=== PATIENT | female | born 1985 | race Caucasian/White ===

== ENCOUNTER 2022-03-09 10:55 | Inpatient (IN) | payer OTHER, MEDICAID, SELFPAY ==
[2022-03-09] VITALS (14 sets, daily range): BP systolic 105–123; BP diastolic 59–75; PULSE 75–99; TEMP 36.3–37.3; O2SAT 97–99; BMI 35.0
--- NOTE | 2022-03-09 15:31 | PCM.HP.OB ---
HPI - General General Date of Admission: 03/09/22 HPI Narrative JAMIA MANNING, is a 37 F @ 39.5 weeks who presents for IOL due to Polyhydramnios, AMA, Obesity in Maternal Data Information Final AARTI: 03/10/22 Final AARTI Source: US <20 weeks Gestational age: 39.5 PFSH PFS Medical History (Updated 03/09/22 @ 15:[address] Mckayla Jovel MD) Anxiety Depression depression Home Medications aspirin [Baby Aspirin] 81 mg PO DAILY 03/09/22 [History Last Taken 03/08/22 09:00] vit-iron fum-folic ac [Prena-Tab] 1 tab PO DAILY 03/09/22 [History Last Taken 03/09/22 08:00] Allergy/AdvReac Type Severity Reaction Status Date / Time No Known Allergies Allergy Verified 03/09/22 11:16 Family History (Updated 03/09/22 @ 13:28 by Sherry Farrar) Mother Bipolar 1 disorder Hypertension Sister Hypertension Father COPD (chronic obstructive pulmonary disease) Surgical History (Updated 03/09/22 @ 13:26 by Sherry Farrar) S/P D&C (status post dilation and curettage) NST FHR Rate Baby A Baseline: 140 Variability:: Moderate Accelerations:: 15 x 15 Decelerations:: None NST Reactive:: Yes FHR Category:: Category I Uterine Activity:: irregular Vital Signs Vital Signs Vital Signs: 03/09/22 11:10 03/09/22 11:11 Temperature 97.5 F L Temperature Source Temporal Pulse Rate 96 96 Blood Pressure 108/67 108/67 BP Systolic 108 108 BP Diastolic 67 67 Pulse Ox 98 Weight Weight: 76.113 kg Body Mass Index (BMI) 35.0 Labs Labs Labs: No Data to Display Assessment & Plan (1) Polyhydramnios: QUALIFIERS: Fetus number: single or unspecified fetus Trimester: third trimester Qualified Code(s): O40.3XX0 - Polyhydramnios, third trimester, not applicable or unspecified (2) 39 weeks gestation of : (3) AMA (advanced maternal age) multigravida 35+: QUALIFIERS: Trimester: third trimester Qualified Code(s): O09.523 - Supervision of elderly multigravida, third trimester (4) Obesity affecting : QUALIFIERS: Trimester: third trimester Qualified Code(s): O99.213 - Obesity complicating , third trimester PLAN: Admit to L&D Montior FHR/TOCO Epidural if requested for pain Monitor VS Anticipate pitocin gbs negative
[2022-03-09 16:15] LABS: Absolute Lymphocyte Count 1.44 X10^3/uL (0.83-4.51); Absolute Neutrophil Count 6.7 X10^3/uL (2.0-7.7); Basophil# 0.04 X10^3/uL; Basophil% 0.4 % (0-1); Eosinophil# 0.04 X10^3/uL; Eosinophils% 0.4 % (0-5); Hematocrit 32.3 % (37-47); Hemoglobin 10.4 g/dL (12.0-15.0); Lymphocyte # 1.44 X10^3/ul (0.83-4.51); Lymphocyte % 16.2 % (19-41); Mean Corp Hgb Conc 32.2 g/dL (32-36); Mean Corpuscular Hgb 29.9 pg (27.0-32.0); Mean Corpuscular Volume 92.8 fL (81-99); Mean Platelet Vol. 10.5 fl (6.2-12.0); Monocyte# 0.64 X10^3/uL; Monocyte% 7.2 % (0-10); NRBC Flagged by Analyzer 0 % (0-5); Neutrophil # 6.67 X10^3/uL (2.7-7.7); Neutrophil % 75.1 % (47-70); Platelet Count 315 K/mm3 (150-450); RBC Distribution Width CV 13.9 % (11.6-14.6); RBC Distribution Width SD 46.8 fl (35.1-43.9); Red Blood Count 3.48 M/mm3 (4.2-5.4); White Blood Count 8.9 K/mm3 (4.4-11.0)
--- NOTE | 2022-03-09 16:39 | PCM.PN.BLA ---
Progress Note Transcervical pearl placed. VE: /-3, vertex on exam. Will allow patient to eat and start pitocin 1 hr after eating.
[2022-03-09] MEDS: 0.9% Normal Saline Single 100 ML IV.SOLN. INTRA-UTER (16:46)
[2022-03-09] MEDS: Lactated Ringers 1,000 ML 50 ML IV (16:46)
[2022-03-09] MEDS: Oxytocin 30 units/NS 500 ml 30 UNITS/500 ML IV.SOLN IV (18:35)
[2022-03-10] VITALS (57 sets, daily range): BP systolic 89–138; BP diastolic 50–79; PULSE 44–196; RESP 16–18; TEMP 36.3–36.8; O2SAT 90–100
[2022-03-10] MEDS: Ondansetron 4 MG/2 ML Vial IV (01:49)
[2022-03-10] MEDS: Lactated Ringers 1,000 ML 200 ML IV ×2 (01:51→05:21)
[2022-03-10] MEDS: fentaNYL-bupivacaine (epidural) 100 ML BAG EPIDURAL (02:52)
[2022-03-10] MEDS: Mag Hydrox/Al Hydrox/Simeth 30 ML UDC PO (03:20)
--- NOTE | 2022-03-10 06:33 | PCM.PN.BLA ---
Progress Note seen at bedside, in hands and knees position. Feeling pressure. Vaginal exam performed 8.5cm/90/0 .
[2022-03-10] MEDS: Oxytocin 30 units/NS 500 ml 30 UNITS/500 ML IV.SOLN 334 UNITS IV (07:30)
--- NOTE | 2022-03-10 07:36 | EX.PCM.OBRPT ---
Assessment & Plan (1) Vaginal delivery: Maternal Data Information Final AARTI Source: US <20 weeks Gestational age: 39.6 Vaginal Delivery Maternal Presentation Maternal Presentation: Medically Indicated Induction Maternal Presentation: polyhydramnios, AMA, Obesity in , 39 weeks gestation Type of Induction: Pitocin and Chávez Bulb Operative Information Date of Procedure: 03/10/22 Pre-Operative Diagnosis: term gestation, ama, polyhydramnios, Post-Operative Diagnosis: same live male infant Surgery / Procedure Performed: Spontaneous Vaginal Delivery Type of Anesthesia: Epidural Estimated Blood Loss: 250 Time of Delivery: 07:19 Findings Description of Procedure: Progressed to fully dilated. Good maternal pushing efforts delivered the head with gentle downward traction anterior shoulder was delivered without complication. Patient did immediate skin to skin with the infant. Infant was vigorous at time of delivery. Delayed cord clamping was performed. I had to step out of the room due to emergent delivery in another room. Placenta was delivered intact spontaneously. Senior Supply Chain Analyst Zoe plots in the room once placenta came out. Vaginal exam performed and no lacerations. Placenta was intact. Presentation: Vertex Amniotic Membrane Rupture Type: Spontaneous Amniotic Fluid Description: Clear Placental Delivery Description: Spontaneous Placenta Disposition: [facility] Cord Vessel Description: 3 Vessels Cord Entanglement: None A Gender: Male (1 minute): 8 (5 minute): 9 Delayed Cord Clamping: Yes Post Vaginal Delivery Medications Given After Delivery: IV Pitocin Episiotomy Description: None Laceration: None Complication Complications: None
[2022-03-10] MEDS: Senna/Docusate Sodium 1 Tablet PO (09:01)
[2022-03-10] MEDS: Benzocaine/Lanolin/Aloe Vera 1 SPRAY EACH TOPICAL (09:02)
[2022-03-10] MEDS: 0.9% Saline Lock 10 ML Syringe IV (10:16)
[2022-03-10] MEDS: Naproxen 500 MG Tablet PO ×2 (10:16→18:57)
--- NOTE | 2022-03-10 12:12 | CM.ED ---
SW Note SW was advised by TRISTON Ramos, that she was calling patient's ORDER ENTRY ADMINISTRATOR for patient to be prescribed Wellbutrin. Patient has history of Post Depression and previously had taken Wellbutrin and wants to go back on Wellbutrin. RN said that on PHQ2 patient answered yes to feeling down and she will administer the PHQ9 to patient. Patient just delivered today. Pamela SMITH
[2022-03-10] MEDS: Acetaminophen 500 MG Tablet 1000 MG PO ×2 (15:45→22:58)
[2022-03-11 05:00] VITALS: BP 105/53; PULSE 87; RESP 18; TEMP 36.2; O2SAT 98
[2022-03-11 05:35] VITALS: BP 105/53; PULSE 88; O2SAT 99
[2022-03-11 08:13] VITALS: BP 99/52; PULSE 96; RESP 18; TEMP 36.4; O2SAT 97
[2022-03-11 08:14] VITALS: BP 99/52; PULSE 71
--- NOTE | 2022-03-11 09:39 | PCM.PN.OB ---
Subjective Subjective Patient seen at bedside. Feeling good. Denies any pain. Ambulating and voiding without difficulty. independently. Desires discharge home today. Objective Data Objective Data Vital Signs: Vital Signs Temp Pulse Resp BP Pulse Ox 97.5 F L 71 18 99/52 L 97 03/11/22 08:13 03/11/22 08:14 03/11/22 08:13 03/11/22 08:14 03/11/22 08:13 Oxygen Delivery Method Room Air Weight: 167 lb 12.8 oz Body Mass Index (BMI) 35.0 Intake & Output: Intake and Output for Last 24 Hours 03/09/22 03/10/22 03/11/22 23:59 23:59 23:59 Intake Total 8.00 / 8.00 4010.55 / 4010.55 Output Total 550 / 550 Balance 8.00 / 8.00 3460.55 / 3460.55 Lab / Micro Data Result Diagrams: 03/09/22 15:50 Micro: Microbiology 03/09/22 16:25 Nasal Secretion SARS-CoV-2 Antigen (Rapid) - Final ROS Eyes Eyes: Denies blurry vision, change in vision or spots in vision ENT HEENT: Denies dizziness or headache(s) Cardiovascular Cardiovascular: Denies abdominal pain, chest pain or dyspnea Respiratory/Chest Respiratory/Chest: Denies cough, dyspnea, shortness of breath at rest or shortness of breath with exertion Gastrointestinal Gastrointestinal: Denies abdominal pain, diarrhea or vomiting Genitourinary Genitourinary: Denies change in urinary stream, difficulty urinating or dysuria Musculoskeletal Musculoskeletal: Reports none Integumentary Integumentary: Denies rash Neurologic Neurologic: Denies dizziness, headache(s), memory loss or weakness Physical Exam Const alert and no apparent distress General Appearance: cooperative and comfortable Exam Limitations: no limitations HEENT normocephalic Eyes General Eye: normal appearance of both eyes Neck full ROM General: normal visual inspection Chest Chest: symmetrical chest wall rise Resp normal respiratory effort and normal air movement Effort and Inspection: symmetric chest movement Auscultation: clear to auscultation bilaterally Cardio regular rate and regular rhythm GI normal to inspection, nondistended, normoactive bowel sounds Back/Spine normal ROM Extremity full ROM and no calf tenderness General Extremity: normal exam except as noted Skin no rashes or lesions noted Neuro CN's II-XII intact bilaterally Psych mental status grossly normal Assessment & Plan (1) Vaginal delivery: PLAN: PPD 1 Routine care support D/C home with follow up in office
--- NOTE | 2022-03-11 09:40 | NURSING ---
Plan of care discussed at nurses station with social media executive and Alexs CNLinda. Pt concerned with taking wellbutrin d/t , pt and CPlotts decided pt will be sent home without anxiety/depression medication and is to monitor symptoms and call office if needed. See social work note.
--- NOTE | 2022-03-11 09:42 | PCM.DC ---
Discharge Instructions Diet Discharge Diet: No restrictions Activity May resume sexual activity in: 6-8 weeks Weight Bearing Status: Weight bearing as tolerated Dressing / Incision Call your doctor if you observe: Fever of 101 or Higher, Inability to urinate, Using more than 1 pad per hour, Shortness of breath, Chest pain, Calf discomfort and Uncontrolled pain Follow Up Care When: 2 weeks virtual visit/ 6 weeks in office Test Results: Test results from this visit will be discussed in further detail at your follow-up appointment, if applicable. Discharge Plan Admission Admit Date/Time: 03/09/22 10:55 Primary Reason for Your Visit: Labor and delivery Attending Provider: Mckayla Jovel Discharge Orders/Prescriptions Prescriptions: Continued vit-iron fum-folic ac 65 mg iron- 1 mg Tablet 1 tab PO DAILY RF: 0 Discontinued aspirin [Baby Aspirin] 81 mg Tablet,Chewable 81 mg PO DAILY RF: 0 Disposition Disposition (needs filled in before D/C Order can be placed): Home, Self Care
--- NOTE | 2022-03-11 09:49 | CASEMGMT ---
Social Work Assessment Labor and Delivery Unit Date/Time of referral: 03/10/22, 10:30 and 19:08 Referred by: Dr. Jovel Date/Time of Intervention: 03/11/22, 9:15am Reason for referrals: history of post depression, PHQ-9 trigger(scored a 3) History obtained from: CHARLEE Household composition: CHARLEE, MAYCO, 4 other children and now baby Booker. MOB and FOB have been together for 9 years. Patient's/ parent/guardian status: MOB and FOB are guardians of the children Medical History: MOB: advanced maternal age, obesity,polyhydramnios, PPD FOB: PTSD, as per mom does not impact him however. Baby: Born, 03/10/22, 7:19, 8 lbs 5oz, apgars 8 and 9 at 1 and 5 minutes System Support Analyst: Dr. 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 FOB, some college, works at [employer] Status: No concerns. MOB plans to return to work in the fall Infant supplies: They have all needed supplies including car seat, bassinet, crib, clothing, diapers, bottles if needed. MOB plans to breast feed Childcare/Caregivers: FOB's mother will watch the children when MOB returns to work, MOB's parents are out of town but are caring for the other children at present. FOB's siblings also are helpful and live nearby. Transportation: They have 2 vehicles Programs/Agencies involved: None Children's Services/Legal Issues: None Behavioral Health Issues: Substance use history: None for MOB or FOB as per MOB. MOB did not have a tox screen on this admission. Baby did not have tox screen. Mental Health: FOB: As per MOB, he has PTSD but it does not affect him. MOB: History of PPD, has had with every . She did not seek help until the last as she did not realize it was PPD. MOB coped by exercising, writing, and speaking to family. MOB was on Wellbutrin but went off when . She spoke to the COMPONENT ASSEMBLER SUPERVISOR about going back on, for now they decided together to hold off. She will call the COMPONENT ASSEMBLER SUPERVISOR if she feels she needs to go back on before their 2 week appointment, otherwise, MOB will follow up w/the COMPONENT ASSEMBLER SUPERVISOR at her 2 week appt to speak w/her about going back on an antidepressant if needed. MOB also plans to call [facility] for counseling if needed. PHQ-9: This was conducted by nurse, pt scored a 3. MOB attributes this more to situational at this time. Family/Social Stressors: MOB states that she and her are talking about divorce, and this is the situation she is attributing the PHQ-9 score to. Support Systems: MOB reports a strong support system. She is not at present in counseling however is close to her sisters and and speaks with them a lot. She also has a supportive faith and supportive friends. Depression and anxiety/shake baby/Safe sleeping/Help Me Grow/[facility] Resources: SW gave MOB information on all of these topics, reviewed in particular information on depression. SW also gave MOB a list of resources in [facility] and pointed out to her the number for the 24 hour mental health crisis hotline if needed. Assessment: SW met w/MOB in room, FOB had stepped out. MOB answered all questions appropriately but briefly, did not elaborate without SW asking follow up questions. MOB appropriate in talking to baby as baby was just waking up as SW leaving the room. MOB has plans to get support if needed with both her current situation of talking about divorce and her history of post depression. Plan: Baby to go home w/parents when discharged, MOB plans to follow up both with medication and counseling as needed for PPD. No further needs anticipated at this time. FOSTER Billingsley
[2022-03-11 13:03] VITALS: BP 105/69; PULSE 83; PULSE 87; RESP 18; TEMP 36.7; O2SAT 100
[2022-03-11] MEDS: Naproxen 500 MG Tablet PO (13:14)
--- NOTE | 2022-03-11 13:39 | NURSING ---
Follow up appointment with Lachelle DAMON on Sunday at 8am.
== END 2022-03-11 13:55 | disposition home or self-care (01) | DRG 807 ==
PROVIDERS: Admitting Provider Obstetrics & Gynecology; Referring Provider Obstetrics & Gynecology; Visit Provider Obstetrics & Gynecology
DX: O40.3XX0 Polyhydramnios, third trimester, not applicable or unspecified (principal); Z37.0 Single live birth; E66.9 Obesity, unspecified; Z3A.39 39 weeks gestation of pregnancy; O99.214 Obesity complicating childbirth; Z79.82 Long term (current) use of aspirin
CPT/HCPCS: 59025; 59050; 85025; 86850; 86900; 86901; 87426; 99218; J7120; A4216; G0378; J2405

== ENCOUNTER 2022-06-09 08:53 | Day surgery (SDC) | payer OTHER, MEDICAID, SELFPAY ==
[2022-06-09] VITALS (7 sets, daily range): BP systolic 97–119; BP diastolic 50–82; PULSE 54–66; RESP 16–18; TEMP 36.1–36.2; O2SAT 95–100; BMI 30.6
--- NOTE | 2022-06-09 | FALS_PTH ---
PATIENT: JAMIA MANNING LOC: [facility] [place] U#:[id number] AGE/SX: 37/F ROOM: RE06/09/[address]: Dr. Deja Suero DO : 1985 BED: DIS: 06/09/2022 SPEC #: [id number] RECD: 06/09/22 12:36 STATUS: DORIAN REQ #: [id number] MALIKA: 06/09/22 00:[address]: Deja Suero DEPT: SURGICAL PATHOLOGY RECD BY: Yoshi Francis ENTERED: 06/09/22 12:36 SP TYPE: FALL TUBES OTHR DR: Dr. Lisbeth Ruffin MD Tissues: Fallopian tube Procedures: Surgery Specimen Level II HEADER OPERATION: Laparoscopic salpingectomy PRE-OP DIAGNOSIS: Sterilization TISSUE SUBMITTED: Bilateral fallopian tubes MICROSCOPIC DIAGNOSIS Bilateral fallopian tubes, salpingectomy: Bilateral fallopian tubes, no pathologic diagnosis. KENNETH:hortencia 06/12/2022 MICROSCOPIC DESCRIPTION Slides are reviewed. GROSS DESCRIPTION Received in fixative is one container labeled with the patient's name and designated bilateral fallopian tubes. The specimen consists of two fallopian tubes with an average length of 6.5 cm and has an average diameter of 0.7 cm. Both fallopian tubes have normal fimbriated ends. No mass lesions are identified. Racebook Writer sections are submitted in two cassettes with each cassette containing one fallopian tube. / AM:hortencia 06/09/2022 TC:4 CPT: 96710 x2
[2022-06-09 09:40] LABS: Hemoglobin 12.3 g/dL (12.0-15.0); Mean Corp Hgb Conc 31.5 g/dL (32-36); Mean Corpuscular Hgb 27.1 pg (27.0-32.0); Mean Corpuscular Volume 85.9 fL (81-99); Mean Platelet Vol. 9.9 fl (6.2-12.0); Platelet Count 296 K/mm3 (150-450); RBC Distribution Width CV 14.7 % (11.6-14.6); Red Blood Count 4.54 M/mm3 (4.2-5.4); White Blood Count 4.6 K/mm3 (4.4-11.0)
[2022-06-09] MEDS: Lactated Ringers 1,000 ML 15 ML IV (09:42)
[2022-06-09 09:45] LABS: Internal QC Validated? YES +Cl - CLEAR BKGD
[2022-06-09 09:46] LABS: Pregnancy, Urine Negative Negative
[2022-06-09] MEDS: Bupivacaine 0.25% 30 ML Vial (11:30)
--- NOTE | 2022-06-09 12:01 | DCINST_ITS ---
Discharge Instructions Diet Discharge Diet: No restrictions Activity Discharge Activity: May Not Drive (until > 24 hours from surgery) and May Not Shower (until > 24 hours from surgery) May resume sexual activity in: 1-2 weeks (no intercourse, baths, pools, hot tubs, tampons until the bleeding stops in 1-2 weeks) Ice area for (Minutes): 15 Weight Bearing Status: Weight bearing as tolerated Lifting Restrictions: Nothing heavier than 15-20 lbs for first 1 week Dressing / Incision Call your doctor if your incision/area has: Continuous Slow Oozing, Sudden Increased Bleeding, Increased Pain/ Swelling, Increased Redness, Foul Smelling Discharge and Swelling at the incision site Call your doctor if you observe: Fever of 101 or Higher, Coldness, Increased Pain, Numbness or Tingling, Change in Color, Inability to urinate, Inability to have a bowel movement, Using more than 1 pad per hour, Shortness of breath, Dizziness, Fainting spells, Swelling in the ankles, Chest pain, Increased palpitations (irregular heartbeat), Calf discomfort and Uncontrolled pain Suture Line Care: Avoid Pulling/Pushing and Avoid Pinching/Bending Remove Dressing in: leave until fall off (the glue will start to peel up. once it does you can peel it off, or cut the edges that are sticking up. there are sutures underneath that will dissolve) Cleanse incision/area with: Soap & Water Follow Up Care Please Follow Up With: Deja Suero DO When: 1-2 weeks post op Test Results: Test results from this visit will be discussed in further detail at your follow- up appointment, if applicable. Discharge Plan Admission Primary Reason for Your Visit: surgery Attending Provider: Deja Suero Primary Care Provider: Lisbeth Ruffin Discharge Orders/Prescriptions Prescriptions: New oxycodone-acetaminophen [Percocet] 5-325 mg tablet 1 tab PO Q6H PRN (Reason: pain) 7 Days Qty: 5 0RF ibuprofen 600 mg tablet 600 mg PO Q6H PRN (Reason: pain) Qty: 30 0RF Continued vit-iron fum-folic ac 65 mg iron- 1 mg Tablet 1 tab PO DAILY cholecalciferol (vitamin D3) [Vitamin D3] 50 mcg (2,000 unit) Capsule 50 mcg PO DAILY Referrals / Follow Up: Lisbeth Ruffin MD [Primary Care Provider] - Disposition Disposition (needs filled in before D/C Order can be placed): Home, Self Care
--- NOTE | 2022-06-09 12:03 | OP.PCM_ITS ---
Problems Associated Problem List Diagnoses (1) Sterilization: Report of Operation Date of Procedure: 06/09/22 Pre-Operative Diagnosis: Request for sterilization Post-Operative Diagnosis: As above Surgery/Procedure Performed:: Laparoscopic bilateral salpingectomy Description of Surgical Findings:: Normal appearing uterus, bilateral fallopian tubes, bilateral ovaries. Normal- appearing pelvis. No descent of uterus and cervix. Surgeon: Deja Suero machine records units supervisor: Sheridan Cardona MS3 Type of Anesthesia: General Special Medications: None Specimen's removed: Bilateral fallopian tubes Drains: None Estimated Blood Loss (mL): < 20 Fluids Replaced: See anesthesia record Description of Procedure: Patient was taken to the operating room where general anesthesia was induced. She was prepped and draped in the dorsal lithotomy position using yellowfin stirrups. A weighted speculum was placed in the vagina to expose the cervix. A single-tooth tenaculum was placed on the anterior lip of the cervix. A uterine manipulator was placed. The single-tooth tenaculum and weighted speculum were removed. Gloves were changed. Attention was turned to the abdominal portion of the procedure. Local was infiltrated at all port sites. An infraumbilical incision was made to accommodate a 5 mm port. This port was placed under direct visualization. Once confirmed intraperitoneal, CO2 gas was infiltrated. The patient was placed in Trendelenburg. A left lateral 5 mm port was placed. A right lateral 5 mm port was placed. The pelvis was inspected and findings were noted as above. The left fallopian tube was followed out to the fimbriated end. Using the LigaSure device the mesosalpinx was serially clamped, cauterized, transected until reaching level of the cornua. Once at the level of the cornua the left fallopian tube was transected and removed. The right fallopian tube was followed out to the fimbriated end. The right mesosalpinx was serially clamped, cauterized, transected using the LigaSure device. Once at the level of the cornua the right fallopian tube was transected and removed. Bilateral fallopian tubes were sent to pathology for review. Hemostasis was noted. The abdomen was exsufflated. All ports were removed. The patient was flattened out. Incisions were closed with 4-0 Monocryl and glue. From below the uterine manipulator was removed and a vaginal sweep was performed. Instrument, sponge, sharp counts were correct. The patient was taken to the recovery room in stable condition. Licensed Chemical Spray Technician Jann Cardona MS 3 assisted with removal of the fallopian tubes and closure. Grafts/Implants Used: None Procedure Start Time: 11:20 Procedure Stop Time: 11:57 Complications None Admit VTE Documentation VTE Present on Admission: No VTE Mechan Device Prophylaxis: SCD's
== END 2022-06-09 13:58 | disposition home or self-care (01) ==
LOC: SDC 08:58 → AC 09:00
PROVIDERS: PCP Internal Medicine; Referring Provider Obstetrics & Gynecology; Visit Provider Obstetrics & Gynecology
PROC: (CPT 58661; principal; 2022-06-09 10:15)
DX: Z30.2 Encounter for sterilization (principal); Z87.891 Personal history of nicotine dependence
CPT/HCPCS: 58661; 00840; 81025; 85027; 86850; 86900; 86901; 88302; J7120; J2405

== ENCOUNTER 2025-08-24 18:00 | Outpatient (RCR) | payer OTHER, SELFPAY ==
--- NOTE | 2025-06-15 13:13 | HP.PTEVAL ---
Patient's Visit Information Visit Information Visit Information: JAMIA MANNING is a 40 year old F referred to Physical Therapy by Dr. Chandni Saha MD with a diagnosis of STRESS URINARY INCONTINENCE. Date of Evaluation: 06/15/25 Physical Therapist: Becky Torres PT, Cert MDT Visit Plan Frequency: 1x/Week Duration: 2-4 Months Plan: PF THERAPY FOR STRENGTHENING, LENGTHENING/RELAXATION AND ENDURANCE TRAINING. URINARY URGE AND FREQUENCY EDUCATION. HEALTHY BLADDER, BACK AND POSTURE HABIT EDUCATION. TRAINING IN COORDINATION OF PELVIC FLOOR MUSCULATURE WITH HIP AND CORE (TRANSVERSE ABDOMINUS) MUSCULATURE. CORE STRENGTHENING. PORSHA LE ROM, STRETCHING AND STRENGTHENING. TRAINING IN ABDOMINAL CAVITY PRESSURE MGMT WITH ADL'S. 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 AT TIMES MAY NEED TO PHYSICALLY RESTRAIN OR RE CHILDREN. Disability: NO Present symptoms: URINARY LEAKAGE AND URGENCY Present since: ABOUT 4 YEARS Pain Scale: N/A Is it getting better, worse or staying the same: STAYING THE SAME Commenced as a result of: 6TH Symptoms at onset: MORE LEAKAGE THAN NOW Worse: JUMPING, URGENY, FULL BLADDER, AND WHEN IN MENSTRAL CYCLE. Better: EMPTYING BLADDER BEFORE JUMPING LONG ACTIVTY WITH JUMPING ISN'T TOO INTENSE OR PROLONGED Disturbed sleep: GETTING UP TO URINATE ABOUT 1X PER NIGHT. Previous history/Previous treatment: SELF TAUGHT KEGELS DURING EACH BUT NOT AFTER. H/O LOW BACK PAIN/STIFFNESS. REPORTS YEARS OF MILD TO MODERATED AND AT TIMES SEVERE LBP. ABOUT 15 YEARS AGO H/O PRESCRIPTION MEDICATION AND CHIROPRACTIC TREATMENT AFTER 2 CHILD (9.5 LBS). DENIES ANY SERIOUS COMPLICATIONS WITH PREGNANCIES OR DELIVERIES. Treatment this episode: NONE Gait: NORMAL How long can you delay the need to urinate: 0 MIN TO LONG NEEDED AT TIMES. Prolapse (Falling out feeling): NO Frequency of Urination: PATIENT DOES NOT KNOW Ability to stop urine flow: YES Ability to initiate urine stream: NO Dyspareunia: N/A Bowel Incontinence: NO Accidents: NO Unexplained weight loss: NO Imaging: NO PMH/Recent major surgery: ANXIETY, TAKES IRON SUPPLEMENT NEEDED OTC. OTHER: LOW BACK IS TYPICALLY STIFF/SORE IN THE MORNING, DOES STRETCHES AND THEN FEELS FINE. MILD LB ACHE AFTER DOING MULCH, ETC. Objective Objective: THIS PATIENT AMBULATES INDEP'LY INTO PT WITHOUT ANY GROSS DEVIATIONS NOTED. SHE STANDS WITH ANTERIOR PELVIC TILT. ABLE TO PARTIALLY CORRECT - NE Sensory deficit: PORSHA LE LIGHT TOUCH SENSATION IS GROSS INTACT AND SYMMETRICAL ROM deficit: HIP IR TIGHTNESS L>R. Motor deficit: PORSHA LE'S 5/5 EXCEPT HIPS 4/5. PELVIC FLOOR STRENGTH WITH INTERNAL MANUAL VAGINAL TESTIN/5 X 5 REPS X 6 SEC. Dural Signs: NEGATIVE PORSHA LE'S. Lumbar mvmt loss: flex - NIL ext - NIL R SG - NIL L SG - NIL Core strength: FAIR Palpation: L45S1 REGION TENDERNESS. NO C/O PAIN WITH INTERNAL MANUAL VAGINAL PALPATION OF PELVIC FLOOR MUSCULATURE AND NO EXCESSIVE INCREASED TONE OR TIGHTNESS. Pelvic Organ Prolapse Distress Inventory 6: 1 Urinary Distress Inventory 6: 10 TREATMENT: DX AND PELVIC FLOOR STRENGTHENING EDUCATION. HEP INST FOR QUICK FLICK KEGELS X 8, 2 TIMES A DAY IN LYING. Goals Goal 1:: DECREASE URINARY LEAKAGE EPISODES TO ONE OR LESS PER DAY Goal Time Frame: 6-8 Weeks Goal 2:: PATIENT WILL SUCCESSFULLY DELAY VOIDING LONG NEEDED WHEN URGENCY OCCURS TO SUCCESSFULLY MAKE IT TO THE BATHROOM. Goal Time Frame: 6-8 Weeks Goal 3:: PATIENT WILL DEMONSTRATE/COMMUNICATE 10 CONSISTENT AND CONSECUTIVE 10 SECOND PELVIC FLOOR MUSCLE CONTRACTIONS TO DEMONSTRATE IMPROVED PELVIC FLOOR ENDURANCE. Goal Time Frame: 8-12 Weeks Goal 4:: DEVELOP HEALTHY FLUID INTAKE HABITS WITH FLUID INTAKE OF ? BODY WEIGHT IN OUNCES PER DAY AND 2/3 BEING WATER. Goal Time Frame: 2-4 Weeks Goal 5:: NORMALIZE VOIDING FREQUENCEY TO EVERY 3-4 HOURS. Goal Time Frame: 6-8 Weeks Goal 6:: PATIENT WILL BE INDEP WITH A HEP/HOME INSTRUCTIONS FOR CONTINUED IMPROVEMENT ONCE FORMAL PHYSICAL THERAPY CONCLUDES. Goal Time Frame: 8-12 Weeks Rehabilitation Potential Physical Therapy Diagnosis: CORE AND PELVIC FLOOR WEAKNESS WITH MIXED URINARY INCONTINENCE. Rehabilitation Potential: Good Anticipated Interventions Patient/Client Instruction: Educate patient on: Condition, Plan of Care and Risk Factors For the Purpose of:: To improve self management Therapeutic Exercise to Include: Strength training, Endurance training, Body mechanics, Postural training, Flexibilty training, Neuromotor development and Relaxation training For the Purpose of:: To improve muscle performance and motor function Text: Thank you for the opportunity to evaluate your patient. For Medicare and Medicare HMO plans, please review the plan of care and approve it. It will need to be FAXED BACK to us at [phone] for Medicare purposes. For Medicare only, by signing this I certify the plan of care. Please let me know if there are questions or concerns regarding this plan of care. Physician Signature: Date:
--- NOTE | 2025-08-24 18:40 | HP.PTDCSUM ---
Discharge Summary D/C summary: It has been my pleasure to treat JAMIA MANNING referred by Dr. Chandni Saha MD, with the diagnosis of STRESS URINARY INCONTINENCE for a total of 9 visit(s). Discharge Date: 08/24/25 Please see the following information for a summary of their discharge status. Subjective Subjective: PATIENT REPORTS SHE IS DOING GOOD AND IS NO LONGER HAVING INCONTINENCE. SHE STATES MY BIGGEST THING WAS I WANTED TO BE ABLE TO JUMP, RUN AND EXERCISE WITHOUT NEEDING TO STOP TO GO TO THE BATHROOM OR LEAK AND I CAN NOW. SHE ALSO REPORTS SHE CAN CONTROL THE URGE WHEN SHE GETS IT. PATIENT REPORTS SHE IS REALLY GLAD SHE DID THIS AND WISHES SHE WOULD HAVE DONE THIS 3 YEARS AGO. Overall Improvement % Improvement: 99 Objective Objective/Function: PATIENT WAS SEEN TODAY FOR RE-ASSESSMENT OF PROGRESS TOWARD THE SET PT GOALS AND THE NEED FOR FURTHER PHYSICAL THERAPY VS READINESS FOR DISCHARGE. THIS PATIENT HAS DONE GREAT WITH PT. ALL GOALS HAVE BEEN MET OR ARE EXPECTED TO CONT TO PROGRESS POST D/C. SHE IS INDEP WITH A HEP AND APPROPRIATE FOR AND AGREEABLE TO DISCHARGE. Pelvic Organ Prolapse Distress Inventory 6: 0 Urinary Distress Inventory 6: 1 Goals Goal 1:: DECREASE URINARY LEAKAGE EPISODES TO ONE OR LESS PER DAY Goal Progress: Goal Met Goal 2:: PATIENT WILL SUCCESSFULLY DELAY VOIDING LONG NEEDED WHEN URGENCY OCCURS TO SUCCESSFULLY MAKE IT TO THE BATHROOM. Goal Progress: Goal Met Goal 3:: PATIENT WILL DEMONSTRATE/COMMUNICATE 10 CONSISTENT AND CONSECUTIVE 10 SECOND PELVIC FLOOR MUSCLE CONTRACTIONS TO DEMONSTRATE IMPROVED PELVIC FLOOR ENDURANCE. Goal Progress: Progressing Goal 4:: DEVELOP HEALTHY FLUID INTAKE HABITS WITH FLUID INTAKE OF ? BODY WEIGHT IN OUNCES PER DAY AND 2/3 BEING WATER. Goal Progress: Progressing Goal 5:: NORMALIZE VOIDING FREQUENCEY TO EVERY 3-4 HOURS. Goal Progress: Progressing Goal 6:: PATIENT WILL BE INDEP WITH A HEP/HOME INSTRUCTIONS FOR CONTINUED IMPROVEMENT ONCE FORMAL PHYSICAL THERAPY CONCLUDES. Goal Progress: Goal Met Plan Plan: PF THERAPY FOR STRENGTHENING, LENGTHENING/RELAXATION AND ENDURANCE TRAINING. URINARY URGE AND FREQUENCY EDUCATION. HEALTHY BLADDER, BACK AND POSTURE HABIT EDUCATION. TRAINING IN COORDINATION OF PELVIC FLOOR MUSCULATURE WITH HIP AND CORE (TRANSVERSE ABDOMINUS) MUSCULATURE. CORE STRENGTHENING. PORSHA LE ROM, STRETCHING AND STRENGTHENING. TRAINING IN ABDOMINAL CAVITY PRESSURE MGMT WITH ADL'S. D/C Information d/c sentence: If there are questions or concerns regarding this patient's physical therapy, please feel free to call me at [phone]. Thank you for the referral of this patient. Sincerely, Becky Torres PT, Cert MDT Balance/Gait/Functional tests Improvement % Improvement: 99
== END 2025-08-24 19:00 | disposition home or self-care (01) ==
LOC: PT 18:00
PROVIDERS: PCP Internal Medicine; Referring Provider Obstetrics & Gynecology; Visit Provider Obstetrics & Gynecology
DX: N39.3 Stress incontinence (female) (male) (principal)
CPT/HCPCS: 97162; 97530